=== PATIENT | female | born 1975 | race Caucasian/White ===

== ENCOUNTER 2020-05-24 09:32 | Emergency (ER) | payer SELFPAY ==
[~2020-05-24] VITALS: Ht 162.6 cm; Wt 85.5 kg
[2020-05-24 09:36] VITALS: TEMP 98.5
[2020-05-24] MEDS ORDERED: ZOLOFT 50MG50 MG PO (09:48)
[2020-05-24] MEDS ORDERED: IBU800 M1 PO (09:49)
[2020-05-24 10:55] VITALS: BP 144/93; PULSE 96
== END 2020-05-24 10:55 | disposition home or self-care (01) ==
LOC: COL.ER 09:32
DX: S92.312A Displaced fracture of first metatarsal bone, left foot, initial encounter for closed fracture (principal); W18.39XA Other fall on same level, initial encounter; W22.8XXA Striking against or struck by other objects, initial encounter; Y92.009 Unspecified place in unspecified non-institutional (private) residence as the place of occurrence of the external cause